=== PATIENT | female | born 1960 | race African-American/Black ===

== ENCOUNTER 2018-04-15 21:23 | Emergency (ER) | payer BC ==
[~2018-04-15] VITALS: Ht 170.2 cm; Wt 64.9 kg
[2018-04-15 21:29] VITALS: Ht 170.2 cm; Wt 64.9 kg
[2018-04-15 22:50] LABS: microscopic required? YES; urine erythrocyte TRACE (NEGATIVE)
[2018-04-15 22:52] LABS: CARBON DIOXIDE 26.2 mmol/L (21-32); CHLORIDE SERUM 106 mmol/L (98-107); CREATININE SERUM 0.9 mg/dL (0.6-1.0); GFR1 > 60 mL/min; GLUCOSE SERUM 99 mg/dL (74-106); POTASSIUM SERUM 3.3 mmol/L (3.5-5.1); SODIUM SERUM 141 mmol/L (136-145)
[2018-04-15 22:56] LABS: ALBUMIN 3.9 g/dL (3.4-5.0); ALKALINE PHOSPHATASE 102 U/L (46-116); ALT/SGPT 17 U/L (14-59); AST/SGOT 15 U/L (15-37); BILIRUBIN TOTAL 0.2 mg/dL (0.20-1.00); PHOSPHOROUS 1.9 mg/dL (2.5-4.9); TOTAL PROTEIN, SERUM 7.8 g/dL (6.4-8.2)
[2018-04-15 23:41] LABS: PLATELET COUNT 186 x10^3mcL (130-400)
[2018-04-15 23:42] LABS: BASOPHIL % 0.3 % (0-2)
[2018-04-16 01:40] VITALS: BP 119/66
== END 2018-04-16 01:40 | disposition home or self-care (01) ==
LOC: ED 21:23
PROVIDERS: Emergency Medicine
DX: N39.0 Urinary tract infection, site not specified (principal); R55 Syncope and collapse; I10 Essential (primary) hypertension; E05.90 Thyrotoxicosis, unspecified without thyrotoxic crisis or storm; F41.9 Anxiety disorder, unspecified; Z90.710 Acquired absence of both cervix and uterus
CPT/HCPCS: 85378; J0696; Q0092